=== PATIENT | male | born 1965 | race Caucasian/White ===

== ENCOUNTER 2025-06-10 19:35 | Emergency (ER) | payer OTHER, SELFPAY ==
[2025-06-10 19:37] VITALS: BP 137/94; PULSE 100; RESP 24; TEMP 37; O2SAT 97; BMI 27.1
--- NOTE | 2025-06-10 20:19 | EKG12_ITS ---
Test Reason : DYSRHYTHMIA Blood Pressure : */* mmHG Vent. Rate : 103 BPM Atrial Rate : 103 BPM P-R Int : 158 ms QRS Dur : 80 ms QT Int : 334 ms P-R-T Axes : 63 90 66 degrees QTcB Int : 437 ms Sinus tachycardia Rightward axis Borderline ECG Confirmed by CARRI PRICE, SATISH ([id number]), business editor DWAINE GLOVER ([id number]) on 06/12/2025 6:41:00 AM Referred By: Confirmed By: SATISH CHRISTINA MD
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
[2025-06-10 20:32] LABS: Hematocrit 47.5 % (40-54); Hemoglobin 16.3 g/dL (13.0-16.5); Immature Granulocytes Count 0.030 X10^3/uL (0.0-0.0); Mean Corp Hgb Conc 34.3 g/dL (32-36); Mean Corpuscular Volume 93.0 fL (80-94); Mean Platelet Vol. 9.2 fl (6.2-12.0); NRBC Flagged by Analyzer 0 % (0-5); Platelet Count 208 K/mm3 (150-450); RBC Distribution Width CV 13.0 % (11.6-14.6); RBC Distribution Width SD 44.6 fl (35.1-43.9); Red Blood Count 5.11 M/mm3 (4.6-6.2); White Blood Count 13.5 K/mm3 (4.4-11.0)
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
[2025-06-10 20:36] VITALS: BP 118/86; PULSE 108; RESP 18; O2SAT 98
[2025-06-10 20:39] VITALS: BMI 28.6
[2025-06-10 20:50] LABS: AST(SGOT) 33 U/L (<=37); Alanine Aminotransfer ALT/SGPT 20 U/L (<=46); Albumin, Serum 4.1 g/dL (3.5-5.0); Alkaline Phosphatase 112 U/L (40-129); Anion Gap 15 (5-15); BUN 10 mg/dL (4-19); BUN/Creat Ratio 10.9 RATIO (10-20); Bilirubin, Direct 0.11 mg/dL (0.00-0.30); Calcium,Total 9.0 mg/dL (7.6-11.0); Carbon Dioxide 20.6 mmol/L (21.0-32.0); Chloride 103 mmol/L (98-108); Estimated Creatinine Clearance 102.37 ml/min (50-250); Globulin 2.7 g/dL (2.2-4.2); Glucose 109 mg/dL (70-99); Potassium 3.6 mmol/L (3.3-5.1)
[2025-06-10 21:00] VITALS: BP 152/79; PULSE 106; RESP 17; O2SAT 100
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
[2025-06-10 21:06] LABS: Alcohol, Blood (Medical)-Serum 37.4 mg/dL (<=10.0)
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
--- NOTE | 2025-06-10 21:50 | ED.RN ---
spoke with jessica Morales for update. permission given by ptRosalinda
[2025-06-10 22:00] VITALS: BP 135/71; PULSE 110; RESP 20; O2SAT 97
--- NOTE | 2025-06-10 22:08 | ED.RN ---
spoke with sister Veronica with pt's permission for update.
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
[2025-06-10 22:59] LABS: Mucous, Urine 0 SEEN /hpf (<or=2+); Red Blood Cells-Urine 0 SEEN /hpf (0-5); Squamous Epithelial Cells - UA 0 SEEN /hpf (0-5)
[2025-06-10 23:00] VITALS: BP 140/70; PULSE 112; RESP 16; TEMP 36.8; O2SAT 99
[2025-06-10 23:00] LABS: Color, Urine Yellow (Yellow); Glucose, Dipstick Normal (Normal); Ketone-Dipstick 5 mg/dl (Negative); Leukocyte Esterase-Dipstick Negative /ul (Negative); Nitrite-Dipstick Negative (Negative); Occult Blood-Urine Negative /ul (Negative); Protein-Dipstick 15 mg/dl (Negative); Specific Gravity, Urine 1.015 (1.002-1.030); Urine Bilirubin Dipstick Negative (Negative)
[2025-06-10] MEDS: fentaNYL 100 MCG/2 ML Ampul 50 MCG IV (23:01)
== END 2025-06-10 23:17 | disposition short-term general hospital (02) ==
PROVIDERS: Emergency Provider Emergency Medicine; Visit Provider Emergency Medicine
DX: S06.5X0A Traumatic subdural hemorrhage without loss of consciousness, initial encounter (principal); S01.01XA Laceration without foreign body of scalp, initial encounter; V28.49XA Other motorcycle driver injured in noncollision transport accident in traffic accident, initial encounter; Z96.649 Presence of unspecified artificial hip joint; F17.210 Nicotine dependence, cigarettes, uncomplicated
CPT/HCPCS: 70450; 70486; 71260; 72125; 73080; 74177; 80048; 80076; 81001; 82077; 85025; 93005; 96374; 99285; Q9967; A4216